=== PATIENT | female | born 2000 | race American Indian/Alaskan Native ===

== ENCOUNTER 2020-10-12 12:51 | Emergency (ER) | payer OTHER | END 2020-10-13 16:46 | disposition left against medical advice (07) | LOC: ED 12:51 | DX: R11.10 Vomiting, unspecified (principal); Z53.21 Procedure and treatment not carried out due to patient leaving prior to being seen by health care provider ==

== ENCOUNTER 2021-11-22 12:50 | Emergency (ER) | payer OTHER ==
[2021-11-22 13:51] VITALS: BP 130/74
== END 2021-11-22 19:00 | disposition left against medical advice (07) ==
LOC: ED 12:50
DX: N89.8 Other specified noninflammatory disorders of vagina (principal); Z53.21 Procedure and treatment not carried out due to patient leaving prior to being seen by health care provider